=== PATIENT | male | born 1965 | race Caucasian/White ===

== ENCOUNTER 2019-05-26 08:23 | Emergency (ER) | payer BC, SELFPAY ==
[2019-05-26 08:30] VITALS: BP 135/72; PULSE 67; TEMP 36.7; O2SAT 100
--- NOTE | 2019-05-26 08:41 | W.ED.GENAD ---
Discharge Plan Disposition Patient Disposition: HOME Condition: Stable Discharge Details Chief Complaint: FlankPain Clinical Impression: Kidney stone on left side Primary Care Provider: Unknown,Unknown ED Provider: Jessica Rhoades Home Meds and New Rx's Prescriptions: New tamsulosin 0.4 mg capsule 0.4 mg PO DAILY Qty: 14 RF: 0 ibuprofen 800 mg tablet 800 mg PO Q8H PRN (Reason: pain) Qty: 14 RF: 0 ondansetron 4 mg tablet,disintegrating 4 mg PO Q6H PRN (Reason: nausea and vomiting) Qty: 14 RF: 0 Continued aspirin [Aspir-81] 81 MG tablet,delayed release (DR/EC) 1 tab PO DAILY RF: 0 garlic 1 EACH capsule 1 tab PO DAILY RF: 0 multivitamin 1 EACH capsule 1 tab PO DAILY RF: 0 Glucosamine Sulf-Chondroitin 1 EACH capsule 1 tab PO DAILY RF: 0 Discharge Instructions Instructions: Kidney Stones (ED) Additional Instructions: Strain all urine. Take medications as directed. Stop the tamsulosin if you start feeling dizzy lightheaded or weak. Follow-up with urology clinic in 2 to 3 weeks. Return to the ED or be seen sooner if any fever, chills, worsening vomiting worsening pain or any concerns. Follow up with primary care provider in 3-5 days. Return to ED sooner if any worsening or concerns. Increase oral fluids. Please take Tylenol or Ibuprofen with food every 4-6 hours as needed for pain and swelling. Stand Alone Forms: Work Release Referrals: Nicole Be NP [NURSE PRACTITIONER] - 2 weeks Medical Decision Making 53-year-old male presents with left flank pain which began this morning. Associated with nausea and vomiting. He denies fever chills diarrhea. He describes pain as waxing and waning right now he describes a 2 out of 10. Max is a 9 out of 10. Denies dysuria or trouble urinating. He has no significant past medical or surgical history, he is a non-smoker. 0844: Work-up ordered including CBC, CMP, UA CT abdomen pelvis without contrast to rule out kidney stone. EXAM: CT RENAL COLIC WO CLINICAL HISTORY: left flank pain TECHNIQUE: COMPARISON: UPPER ABD WITH CONTRAST (P) from 05/17/2010 FINDINGS: CT examination of the abdomen and pelvis was performed without contrast administration. Visualized portions of liver and spleen are unremarkable as is the pancreas. The adrenals are unremarkable in appearance bilaterally. Gallbladder and bile ducts are CT normal. No abdominal wall hernia. No significant abdominal or pelvic adenopathy. Normal diameter of abdominal aorta noted. Appendix is normal. No evidence of diverticulitis or bowel obstruction. Right kidney and ureter are unremarkable with no evidence of obstruction or calcification. There is moderate left hydronephrosis and hydroureter to the level of the distal ureter. There is an apparent obstructing 2 millimeter in diameter stone which appears to lie in the intramural portion of the left ureteral vesical junction. IMPRESSION: Left-sided urinary tract obstruction secondary to 2 millimeter in diameter UVJ stone. 0955: Urology paged. 1004: Spoke with Nicole Be NP with urology clinic she recommends 0.4 mg of tamsulosin giving the patient a strainer, and follow-up in their office in the next 2 to 3 weeks. Patient is much more comfortable after the Toradol and is sleeping in the room at this time. Patient discharged with home care instructions, verbalized understanding. This text was generated using [employer] system, please disregard any oddities of phrase or misspellings. HPI General Mode of arrival: ambulatory. Date/Time Provider Initiated Documentation: 05/26/19 08:30. Limitations to Documentation: no limitations. Information obtained by: patient. HPI Narrative: 53-year-old male presents with left flank pain which began this morning. Associated with nausea and vomiting. He denies fever chills diarrhea. He describes pain as waxing and waning right now he describes a 2 out of 10. Max is a 9 out of 10. Denies dysuria or trouble urinating. He has no significant past medical or surgical history, he is a non-smoker. Related Data Home Medications Medication Instructions Recorded Confirmed Glucosamine Sulf-Chondroitin 1 tab PO DAILY 11/24/14 05/26/19 aspirin [Aspir-81] 1 tab PO DAILY 11/24/14 05/26/19 garlic 1 tab PO DAILY 11/24/14 05/26/19 multivitamin 1 tab PO DAILY 11/24/14 05/26/19 ibuprofen 800 mg PO Q8H PRN #14 tab 05/26/19 ondansetron 4 mg PO Q6H PRN #14 tab 05/26/19 tamsulosin 0.4 mg PO DAILY #14 cap 05/26/19 Previous Rx's Medication Instructions Recorded ibuprofen 800 mg PO Q8H PRN #14 tab 05/26/19 ondansetron 4 mg PO Q6H PRN #14 tab 05/26/19 tamsulosin 0.4 mg PO DAILY #14 cap 05/26/19 Allergies Allergy/AdvReac Type Severity Reaction Status Date / Time No Known Allergies Allergy Unverified 05/26/19 08:39 General Stated Complaint: FlankPain DORI: 3 Review of Systems Narrative: Constitutional: Negative for weight loss, alert and oriented, well groomed, normal body habitus, appears comfortable. HEENT: Denies trauma, headaches, blurry vision, nasal discharge, sore throat, trouble swallowing. Chest: Denies chest pain, palpitations, irregular rhythm, hypertension. Respiratory: Denies Shortness of breath, cough, hemoptysis. GI: Denies abdominal pain, nausea, vomiting, diarrhea, constipation. : Denies dysuria, hematuria, rectal bleeding. Positive left-sided flank pain. Neuro: Denies dizziness, blurry vision, weakness, syncope, headache or facial numbness. Hematologic: Denies easy bruising, intolerance to heat or cold, hair loss. [facility] Social History Smoking/Tobacco Use Status: Never Drug use: Never Substance use type: does not use Do you feel safe at home: Yes Do you feel safe in your relationship?: Yes Exam Narrative Exam Narrative: Constitutional: Alert and oriented x3. Appears stated age. Normal body habitus. Head: Normocephalic, no trauma. Eyes: Pupils PERRLA, Red reflex noted, EOM's intact. Eyelids symmetrical without lesions, discharge, or swelling. ENT: Bilateral TM's WNL, External ear normal to inspection, no mastoid TTP, swelling, or erythema, Nasal turbinates WNL, no nasal discharge. Normal dentition, Posterior pharynx WNL, no exudate. Chest: RRR, Normal S1, S2, distal pulses intact. Resp: Lungs clear to auscultation bilaterally, no wheezes, rales, or rhonchi. Abdomen: Soft nontender to palpation. Normoactive bowel sounds all 4 quadrants. : Genital exam deferred, positive left-sided CVA tenderness. Musculoskeletal: Normal gait, 5/5 strength to all four extremities. Skin: No suspicious rashes or lesions. Capillary refill less than 2 sec. Neurologic: Cranial nerves II-XII intact. Alert and oriented x 3. DTR's intact. Hematologic/Lymphatic: No ecchymosis, no lymphadenopathy. Course Vital Signs Vital signs: Vital Signs Temperature 36.7 C 05/26/19 08:30 Pulse 67 05/26/19 08:30 Blood Pressure 135/72 05/26/19 08:30 Pulse Oximetry 100 05/26/19 08:30 Temperature 36.7 C 05/26/19 08:30 Temperature Source Temporal Artery Scan 05/26/19 08:30 Pulse 67 05/26/19 08:30 Respiratory Effort Non-Labored 05/26/19 08:35 Blood Pressure 135/72 05/26/19 08:30 Blood Pressure Position Sitting 05/26/19 08:30 Pulse Oximetry 100 05/26/19 08:30 Oxygen Delivery Method Room Air 05/26/19 08:30 Oxygen Flow Rate 0 05/26/19 08:30 Pain Level 9 05/26/19 08:36
[2019-05-26 08:44] LABS: Bilirubin Negative (Negative); Blood Negative (Negative); Clarity Clear (Clear); Glucose Negative (Negative); Ketones Trace mg/dL (Negative); Leukocyte Esterase Negative (Negative); Nitrite Negative (Negative); Specific Gravity >= 1.030 (1.005-1.025); Urobilinogen 0.2 EU/dL (Up TO 0.2)
[2019-05-26] MEDS: Ondansetron 4 MG/2 ML VIAL IVP (08:54)
[2019-05-26] MEDS: Ketorolac 30 MG/ML VIAL IVP (08:55)
[2019-05-26] MEDS: Normal Saline Flush 10 ML SYR IVP (08:55)
[2019-05-26] MEDS: Normal Saline 1,000 ML 1000 ML IV (08:56)
[2019-05-26 09:16] VITALS: BP 113/77; PULSE 64; O2SAT 95
[2019-05-26 09:16] LABS: Absolute Basophil Count 0.03 k/cumm (0.0-0.2); Absolute Eosinophil Count 0.02 k/cumm (0.0-0.7); Absolute Lymphocyte Count 0.83 k/cumm (1.2-3.4); Absolute Neutrophil Count 4.32 k/cumm (1.2-6.7); Basophils % 0.5; Eosinophils % 0.4; HCT 46.1 % (40.0-50.0); HGB 15.4 g/dL (13.5-17.5); Lymphocytes % 14.8; Mean Corp. HGB Concentration 33.4 g/dL (32.0-36.0); Mean Corpuscular Hemoglobin 30.5 pg (27.0-33.0); Mean Corpuscular Volume 91.3 fL (80-95); Mean Platelet Volume 10.6 fL (8.0-11.0); Monocytes % 7.1; Neutrophils % 77.2; Platelet Count 219 x1000/uL (130-400); RBC 5.05 m/cumm (4.50-6.00); RBC Distribution Width 13.8 % (11.8-14.1)
--- NOTE | 2019-05-26 09:30 | DI.CT_ITS ---
EXAM: CT RENAL COLIC WO CLINICAL HISTORY: left flank pain TECHNIQUE: COMPARISON: UPPER ABD WITH CONTRAST (P) from 05/17/2010 FINDINGS: CT examination of the abdomen and pelvis was performed without contrast administration. Visualized po rtions of liver and spleen are unremarkable as is the pancreas. The adrenals are unremarkable in appe arance bilaterally. Gallbladder and bile ducts are CT normal. No abdominal wall hernia. No significan t abdominal or pelvic adenopathy. Normal diameter of abdominal aorta noted. Appendix is normal. No evidence of diverticulitis or bowel obstruction. Right kidney and ureter are unremarkable with no evidence of obstruction or calcification. There is moderate left hydronephrosis and hydroureter to the level of the distal ureter. There is an apparent obstructing 2 millimeter in diameter stone which appears to lie in the intramural portion of the left ureteral vesical junction. IMPRESSION: Left-sided urinary tract obstruction secondary to 2 millimeter in diameter UVJ stone.
[2019-05-26 09:31] LABS: ALT 31 U/L (16-63); AST 22 U/L (15-37); Alkaline Phosphatase 63 U/L (46-116); Anion Gap 9.3 mmol/L (3-11); BUN 18 mg/dL (7-18); Bilirubin, Total 0.7 mg/dL (0.2-1.0); CO2 26.7 mmol/L (21.0-32.0); CREATININE 1.11 mg/dL (0.70-1.30); Calcium 9.2 mg/dL (8.5-10.1); Chloride 104 mmol/L (98-107); Glucose 120 mg/dL (74-106); Potassium 3.8 mmol/L (3.5-5.1); Sodium 140 mmol/L (136-145); Total Protein 7.1 g/dL (6.4-8.2)
[2019-05-26] MEDS: Tamsulosin 0.4 MG CAPCR PO (10:10)
[2019-05-26 10:15] VITALS: BP 131/83; PULSE 66; TEMP 37.1; O2SAT 96
== END 2019-05-26 10:26 | disposition home or self-care (01) ==
PROVIDERS: Emergency Provider Registered Nurse Emergency
DX: N20.1 Calculus of ureter (principal)
CPT/HCPCS: 80053; 96361; 96374; 96375; 99284; 74176; 81003; 85025; J1885; J2405

== ENCOUNTER 2019-05-27 13:33 | Outpatient (REF) | payer BC, SELFPAY ==
[2019-06-02 20:53] LABS: Source: Passed Stone
== END 2019-05-27 13:53 ==
LOC: LBN ADD 13:33
PROVIDERS: PCP Nurse Practitioner Gerontology; Visit Provider Nurse Practitioner Gerontology
DX: N20.0 Calculus of kidney (principal)
CPT/HCPCS: 82365

== ENCOUNTER 2019-07-03 02:47 | Outpatient (CLI) | payer BC, SELFPAY ==
--- NOTE | 2019-07-03 09:15 | DI.US_ITS ---
EXAM: US RENAL CLINICAL HISTORY: monitoring/check hydro - cont'd left flank pain,N20.0,LT KIDNEY STONE. TECHNIQUE: Rodriguez scale, color and spectral Doppler were used. COMPARISON: CT CT RENAL COLIC WO from 05/26/2019 FINDINGS: Renal size in cm: Right: 10.0 left: 11.0 Echogenicity: Normal Hydronephrosis: No Cyst or mass: No Nephrolithiasis: No Other findings: No perinephric collection Bladder:Normal both ureteral jets were visualized. Prevoid vol: 289 cc Postvoid vol: 149 cc Prostate volume 14 cc. IMPRESSION: No evidence of hydronephrosis. Elevated postvoid residual volume. DATA REPOSITORY:
== END 2019-07-03 03:07 ==
PROVIDERS: Visit Provider Nurse Practitioner Gerontology
DX: N20.0 Calculus of kidney (principal); R39.198 Other difficulties with micturition
CPT/HCPCS: 76770

== ENCOUNTER 2019-08-28 09:48 | Outpatient (CLI) | payer BC, SELFPAY ==
--- NOTE | 2019-08-28 09:30 | DI.RAD_ITS ---
EXAM: XR HIP RT COMPLETE AP PELVIS CLINICAL HISTORY: eval R hip OA. TECHNIQUE: 2D digital imaging was performed. COMPARISON: No exams were available for comparison FINDINGS: There are marked degenerative changes of the right hip characterized by joint space narrowing, subcho ndral sclerosis and cysts. In the left hip there is mild joint space narrowing and subchondral scler osis. No acute fracture or dislocation. IMPRESSION: Marked degenerative changes of the right hip DATA REPOSITORY: RADIATION DOSE DELIVERED:
== END 2019-08-28 10:08 ==
PROVIDERS: Referring Provider Student in an Organized Health Care Education/Training Program; Visit Provider Student in an Organized Health Care Education/Training Program
DX: M16.11 Unilateral primary osteoarthritis, right hip (principal)
CPT/HCPCS: 73502

== ENCOUNTER 2019-09-19 04:36 | Outpatient (CLI) | payer BC, SELFPAY ==
[2019-09-19 09:56] LABS: HCT 46.8 % (40.0-50.0); HGB 15.3 g/dL (13.5-17.5); MCH 30.1 pg (27.0-33.0); MCHC 32.7 % (32.0-36.0); MCV 92.1 fL (80-95); Platelet Count 217 10^3/uL (130-400); RBC 5.08 10^6/uL (4.36-5.78); RDW-SD 43.8 fL; WBC 4.17 10^3/uL (4.4-10.8)
[2019-09-19 10:48] LABS: Anion Gap 11.1 mmol/L (3-11); BUN 15 mg/dL (7-18); CO2 24.9 mmol/L (21.0-32.0); CREATININE 0.82 mg/dL (0.70-1.30); Calcium 8.9 mg/dL (8.5-10.1); Chloride 105 mmol/L (98-107); Glucose 96 mg/dL (74-106); Potassium 4.4 mmol/L (3.5-5.1); Sodium 141 mmol/L (136-145)
== END 2019-09-19 04:56 ==
PROVIDERS: Visit Provider Student in an Organized Health Care Education/Training Program
DX: M16.11 Unilateral primary osteoarthritis, right hip (principal)
CPT/HCPCS: 36415; 80048; 85027; 86850; 86900; 86901

== ENCOUNTER 2019-09-20 07:26 | Outpatient (CLI) | payer BC, SELFPAY ==
[2019-09-21 23:38] LABS: COVID-19 RT-PCR Result NEGATIVE (Negative)
== END 2019-09-20 07:46 ==
PROVIDERS: Visit Provider Student in an Organized Health Care Education/Training Program
DX: Z11.59 Encounter for screening for other viral diseases (principal); Z01.818 Encounter for other preprocedural examination
CPT/HCPCS: U0003

== ENCOUNTER 2019-09-24 08:24 | Observation (INO) | payer BC, SELFPAY ==
[2019-09-24] VITALS (12 sets, daily range): BP systolic 79–114; BP diastolic 40–78; PULSE 61–76; RESP 14–20; TEMP 35.8–36.6; O2SAT 94–99
[2019-09-24] MEDS: Celecoxib 200 MG CAP 400 MG PO (08:53)
[2019-09-24] MEDS: Acetaminophen 500 MG TAB 1000 MG PO ×2 (08:54→13:44)
[2019-09-24] MEDS: Lactated Ringers 1,000 ML 80 ML IV ×2 (09:17→10:50)
--- NOTE | 2019-09-24 09:34 | DSE_ITS ---
Date of service: 09/24/19 Time of Service: 15:58 DS: Diagnosis Discharge Diagnosis (1) Osteoarthritis of right hip: Status: Acute Discharge Plan Disposition Patient Disposition: HOME Condition: Good Discharge Details Reason For Visit: R SAMIR Admit Date/Time: 09/24/19 08:24 Admit Provider: Carter Lizama Attending Provider: Carter Lizama Primary Care Provider: Arielle,[facility] Hospital Course Hospital Course: Patient was admitted to the medical/surgical floor following the procedure. The surgery was tolerated well without any notable medical, surgical, or anesthetic complications. Mobilization began postoperatively. Milind was voiding spontaneously. Vitals were stable. Physical therapy worked with the patient and was cleared for discharge home. No acute medical issues. Pain was controlled on oral regimen. Home Meds and New Rx's Prescriptions: New oxycodone 5 mg tablet 5 mg PO Q4H PRNQty: 12 RF: 0 ibuprofen 600 mg tablet 600 mg PO TID Qty: 90 RF: 0 aspirin 81 mg tablet,delayed release (DR/EC) 81 mg PO BID Qty: 60 RF: 0 acetaminophen [Tylenol Extra Strength] 500 mg tablet 500 mg PO Q6H PRNQty: 90 RF: 0 pantoprazole 40 mg tablet,delayed release (DR/EC) 40 mg PO DAILY Qty: 30 RF: 0 docusate sodium [Colace] 100 mg capsule 100 mg PO BID PRNQty: 10 RF: 0 Continued omega-3 fatty acids [Fish Oil Concentrate] 1,000 mg capsule 1,000 mg PO DAILY RF: 0 garlic 1 EACH capsule 1 tab PO DAILY RF: 0 multivitamin 1 EACH capsule 1 tab PO DAILY RF: 0 Glucosamine Sulf-Chondroitin 1 EACH capsule 1 tab PO DAILY RF: 0 Discontinued aspirin [Aspir-81] 81 MG tablet,delayed release (DR/EC) 1 tab PO DAILY RF: 0 ibuprofen 800 mg tablet 800 mg PO Q8H PRN (Reason: pain) Qty: 14 RF: 0 Discharge Instructions Additional Instructions: Total Hip Discharge Instructions Activity: The most important activity is to walk. You should try to take short walks a few times a day. You have no restrictions on movement or positioning, but do not try to force what you do. You will find some stiffness and weakness with hip flexion (lifting your knee). Do not try to strengthen this too early, continue to practice walking and stairs and this will come. - Outpatient physical therapy can be helpful to help return you to a normal gait and improve your flexibility and strength. This can start around 2 weeks. For some patients, it?s not necessary. Usually this is determined at the time of discharge or at the first post-operative visit. - You should wear the MEKA hose on both legs for 2 weeks. Dressing: Keep the surgical dressing in place for at least one week. After the first week it may be removed and replace with light gauze and tape or nothing. It may get wet after 3 days but avoid soaking the dressing. If it gets wet, just lightly pat dry. It is important to always keep some gauze between skin folds, especially when you are sitting. Spend some time with the wound exposed when you are lying flat as the incision does wrinkle onto itself. Medications: - You should take Tylenol and an anti-inflammatory Celebrex as your primary pain control medications - You have been prescribed a stronger pain medication Oxycodone for breakthrough pain, take as needed as prescribed. - You have also been prescribed a stomach acid reduction agent Pantoprozole to help reduce stomach acid and reflux. - You will be taking Aspirin 81mg twice a day for DVT prevention unless instructed otherwise. - If you have constipation you should take Colace or Miralax (both [id number]) but Colace has been called in. It takes most people 3-4 days to have a bowel movement. Follow-up: 2 weeks Referrals: Carter Lizama MD [ [facility] STAFF PHYSICIAN] - Activity:: Activity as Tolerated Equipment/Supplies:: Walker Diet:: As Tolerated Discharge Orders Discharge Orders: Discharge Order (Routine); Ordered 09/24/19 Ordered By: Carter Lizama DS: Summary Status at Discharge Functional status at discharge: uses cane/walker Overall status at discharge: patient is progressing back to baseline Mental Status: mental status grossly normal Speech and Movement: speech and movement normal Mood: congruent mood Affect: normal affect Exam Psych Mental Status: mental status grossly normal Speech and Movement: speech and movement normal Mood: congruent mood Affect: normal affect [facility] Surgical History Hernia (Chronic) History of tonsillectomy (Chronic) Hx of colonoscopy (Chronic) Hx of wisdom tooth extraction (Acute) Social History Smoking/Tobacco Use Status: Former Tobacco Use Drug use: Never Substance use type: does not use Current gender identity: male Do you feel safe at home: Yes Do you feel safe in your relationship?: Yes
[2019-09-24] MEDS: ceFAZolin 2 GM/50 ML BAG IVPB (10:10)
[2019-09-24] MEDS: Bupivacaine 0.25% Pres-Free 30 ML VIAL (10:45)
[2019-09-24] MEDS: Ketorolac 30 MG/ML VIAL (10:46)
--- NOTE | 2019-09-24 11:25 | DI.RAD_ITS ---
EXAM: XR HIP RT IN OR CLINICAL HISTORY: Osteoarthritis of right hip. TECHNIQUE: 2D and realtime digital imaging was performed. COMPARISON: No exams were available for comparison FINDINGS: Fluoroscopy was provided in the OR. Hard copy images show placement of a right hip prosthesis. The alignment appears satisfactory. Please see procedure note for details. Fluoro time: 51.7 sec RADIATION DOSE DELIVERED:
[2019-09-24] MEDS: ePHEDrine 50 MG/ML VIAL 25 MG IM (12:10)
[2019-09-24] MEDS: ePHEDrine 50 MG/ML VIAL 10 MG IVP (12:10)
[2019-09-24] MEDS: HYDROmorphone 2 MG/ML VIAL IVP (12:15)
--- NOTE | 2019-09-24 14:35 | PT.INIE ---
Date of service: 09/24/19 Time of Service: 14:35 PT Notes Visit Reasons: R SAMIR Physical Therapy Inpatient Initial Evaluation Date: 09/24/2019 Referring Doctor: Carter Lizama MD PT Orders: PT CONSULT: Status post Ortho surgery Precautions: Fall. Standard. WBAT on right LE. Patient Profile/Admitting Diagnosis: Easton is a for 3-year-old male with primary unilateral osteoarthritis of the right hip and is status post right total arthroplasty on postoperative day 0. PMHX: Surgical History Hernia (Chronic) History of tonsillectomy (Chronic) Social History/Home Situation: Easton lives with his in a private home with 3 steps to enter without rails. He is independent with all aspects of ADLs without the need for an assistive ambulatory device nor adaptive equipment. 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 Equipment Owned/DME: Front wheeled walker Subjective: Patient reports 3/10 pain in the left hip area which felt significantly better with ambulation. However patient reported cold and clammy right after ambulation and stair activity. He still hopes to go home today when medically cleared. He hopes to go back to work after that 6 weeks of leave that he was approved for. Objective: General Observation: Bilateral TEDs on. Mepilex Ag over surgical incision. IV in right UE. Mental Status: Alert and oriented x4 Pain: 3/10 in the right hip Vital Signs: Hypotensive episode at 91/59 mmHg after mobility assessment ROM: Right Upper Extremity: Shoulder Flexion WFL. Shoulder abduction WFL. Elbow flexion WFL. Wrist flexion WFL. Opening and closing of hand WFL. Left Upper Extremity: Shoulder Flexion WFL. Shoulder abduction WFL. Elbow flexion WFL. Wrist flexion WFL. Opening and closing of hand WFL. Right Lower Extremity: Hip flexion WFL. Hip abduction WFL. Knee flexion WFL. Ankle dorsiflexion WFL. Ankle plantarflexion WFL. Left Lower Extremity: Hip flexion WFL. Hip abduction WFL. Knee flexion WFL. Ankle dorsiflexion WFL. Ankle plantarflexion WFL. Strength: Right Upper Extremity: Shoulder flexors 5/5. Shoulder abductors 5/5. Elbow flexors 5/5. Elbow extensors 5/5. Mental Health Aide strong. Left Upper Extremity: Shoulder flexors 5/5. Shoulder abductors 5/5. Elbow flexors 5/5. Elbow extensors 5/5. Mental Health Aide strong. Right Lower Extremity: Hip flexors 5/5. Hip abductors 5/5. Knee flexors 5/5. Knee extensors 5/5. Ankle dorsiflexors 5/5. Ankle plantarflexors 5/5. Left Lower Extremity:Hip flexors 5/5. Hip abductors 5/5. Knee flexors 5/5. Knee extensors 5/5. Ankle dorsiflexors 5/5. Ankle plantarflexors 5/5. Sensation: Intact as to pain and pressure on bilateral lower extremities. Bed Mobility/Transfers: Supine to sit standby assist Sit to supine standby assist Sit to stand standby assist using front wheeled walker Stand to sit standby assist using front wheeled walker Bed to chair standby assist using front wheeled walker Chair to bed standby assist using front wheeled walker THERA EX: Easton tolerated standing level exercises consisting of bilateral heel raises x10, partial knee bends x10, and marching in place to stand on hold onto wheeled walker without undue difficulty. Gait: 250 feet using a walker with step through heel-toe gait pattern requiring standby assist. Tolerated up-and-down six 4 inch steps and four 6 inch steps with one hand holding onto a rail and the other hand using a single-point cane with SBA using step to gait pattern, minimal verbal cues given correct technique. Patient reported being cold and clammy afterwards with blood pressure going down to 91/59 mmHg. Patient was wheeled up to room and was helped back in bed to rest. Balance: Static Sitting: Normal Dynamic Sitting: Normal Static Standing: Fair Dynamic Standing: Fair Special Tests: Mobility Limitations Standardized Measure [facility] AM-PAC 6 clicks Basic Mobility Inpatient Short Form: Raw Score: 24 CMS Score: 0% deficit Informed Consent/Education: Patient instructed in purpose of PT consult and plan of care. Assessment: Easton demonstrates functional mobility decline requiring the use of a walker to maximize independence with transfer and ambulation tasks and decreased activity tolerance with walking due to postoperative status. is a 53-year-old male with primary unilateral osteoarthritis of the right hip and is status post right total hip arthroplasty on postoperative day 0. Patient presents with clinical signs and symptoms consistent with current/admitting diagnoses that have resulted to mobility limitations, gait instability, generalized weakness, and impairment of motor control as demonstrated by the following impairment level findings: 1. Decreased strength to right hip major muscle groups 2. Impaired sitting/standing balance 3. Impaired activity tolerance Impairments are contributing to the following functional limitations: 1. Inability to safely ambulate without assistive device and physical assistance 2. Increase completion time for mobility ADL performance 3. Increased fall risk 4. Inability to negotiate steps alone safely Patient is assessed [place] a 90660 moderate complexity based on the following: History: 53-year-old male with impairment level findings, functional limitations, and past medical history as indicated above Examination: Demonstrable impairment in strength, balance, and mobility level with underlying impairments and functional limitations as documented above Presentation:Evolving Decision Makin moderate complexity Goals: Goals X 1 session 1. Supine-Sit independent 2. Sit-Supine independent 3. Sit-Stand independent 4. Stand-Sit independent 5. Bed-Chair independent 6. Chair-Bed independent 7. Independent gait on level surface with use of least restrictive device for at least 300 feet without report of pain nor dyspnea 8. Independent stair negotiation while holding onto bilateral rails for at least 10 steps without report of pain nor dyspnea 9. Independent with home exercise program 10. Good static and dynamic standing balance/tolerance Plan of Care/Treatment Plan: N/A. Patient is evaluation 1 treatment session only. DISCHARGE RECOMMENDATIONS: Home when medically cleared by orthopedic surgeon. May benefit from outpatient physical therapy services to facilitate return to independent premorbid level and vocational activities. TREATMENT CODE/TIME: 9716 2 x 25 minutes, 16646 x 20 minutes beginning at 14:35 PM. Thank you for the opportunity to participate in the care of this patient. Mckayla Ariza PT, DPT, CLT [facility] [place], [place]
--- NOTE | 2019-09-24 14:43 | ROE_ITS ---
Date of service: 09/24/19 Time of Service: 11:40 Operative Note Operative Note DATE OF PROCEDURE: 09/24/19 PRE-OP DIAGNOSIS: Right Hip Osteoarthritis POST-OP DIAGNOSIS: same PROCEDURE: Right anterior Total Hip Arthroplasty SURGEON: Carter Lizama [employer] UNDERWRITER: Tabatha Antony ANESTHESIA: spinal ESTIMATED BLOOD LOSS: 400 PATHOLOGY: none sent COMPLICATIONS: None Patient was transported to: PACU Patient's condition: stable Implants: 1. Depuy [place] Acetabular Component, 56mm 2. Depuy Acetabular Liner, [id number] 3. Depuy Corail High Offset Femoral Stem, Size 13 4. Depuy Altrx Ceramic Femoral Head, Size 36+1.5mm Indications: I have seen Milind in clinic for symptoms of hip arthritis, confir med with radiographic findings. He has exhausted nonoperative methods and was having significant limitations in daily function and desired better function and less pain. I discussed the technical details of a hip replacement. I explained the risks of the procedure to include, but not limited to, bleeding, infection, pain, stiffness, fracture, damage to nerves and vessels, damage to muscles and tendons, loosening, instability, leg length inequality, need for repeat procedure, blood clot and cardiopulmonary demise. Despite these risks, Milind elected to proceed. Findings: There was significant signs of arthritis throughout the hip. There were large lateral neck osteophytes and acetabular rim osteophytes with calcified labrum. Procedure Description: Milind was greeted in the preoperative holding area where the correct side was identified and marked. The consent was reviewed with the patient and signed. The history and physical was updated. All questions were answered. He was taken back to the operating room. A spinal anesthestic was then administered. The patient was placed into the supine position on the operating room table. The patient was then positioned onto the ARCH table. Both feet were wrapped with [place] cotton wrap along with Coban. The feet were placed in specialized boots for the ARCH table, well seated within the boot and secured. SCDs were applied. The patient was then slid down onto a peroneal post and the nonoperative leg was secured in a leg knight attached to the table. The operative side was placed into the ARCH table attachment and bed height and positioning was secured. A preoperative AP pelvis was obtained to serve as a reference for determining leg lengths. Prophylactic antibiotics in the form of cefazolin were administered. 1g of Tranxemic Acid was given intravenously within 30 minutes of incision. The right leg was then prepped with Chloraprep and draped in a standard fashion. A second prep with Chloraprep was performed prior to placement of a shower-curtain type drape with Iodine impregnated skin protection. A timeout to confirm correct identity, side and site, procedure, allergies, anesthesia, and medical concerns was performed. An obliquely oriented incision was made starting lateral to the ASIS and running distal over the Tensor Fascia Nia (TFL) muscle belly toward the fibular head, approximately 10cm. The skin and soft tissue was dissected sharply, through Sophia?s fascia, and to the fascia of the TFL. With the fascia and superior border of the IT band identified, the fascia was incised with a new knife just above any perforators from the IT band. The TFL muscle belly was bluntly dissected away from the fascia and moved laterally. The fat between TFL and rectus was identified to ensure the dissection was not within the TFL. Blunt dissection created space between abductors and the capsule and retractor was placed over the lateral femoral neck. The fibers of the rectus femoris tendon were identified and these were freed from the anterior capsule. A second cobra retractor was placed around the medial femoral neck. The TFL was further retracted laterally to show the deep fascia. Careful dissection through this layer identified three main crossing vessels of the lateral femoral circumflex. These were cauterized in multiple locations and then cut without any noticeable bleeding. The TFL was further released bluntly from the deep fascia to expose anterior hip capsule and fat the Joselito orthopaedic retractor was then placed beneath the TFL and against sartorius and medial soft tissues to protect and retract the soft tissues. A T-capsulotomy was then performed starting at the superior lateral acetabulum and moving distally to the intertrochanteric ridge. These capsular flaps were tagged with a No. 1 Ethibond and elevated from within. The capsular flaps were released to the shoulder of the lateral neck and to the lesser trochanter to give excellent visualization of the proximal femur. A neck osteotomy was performed using an oscillating saw based on preoperative te mplates. This cut started in the shoulder and of the lateral neck and exited medially. The saw was at all times directed medially to avoid injury to the greater trochanter. 6cm of traction was applied to the leg and the osteotomy opened. The femoral head was removed with a corkscrew, making sure to protect the TFL on its exit. This was measured on the back table to determing the starting reamer size. Portions of the rectus obscuring visualization were minimally elevated off the superior acetabulum. An anterior retractor was placed over the anterior wall between capsule and labrum and attached to the Gripper retraction system. A posterior retractor was placed similarly. This provided excellent visualization. The contents of the cotyloid fossa were removed with electrocautery and the labrum was removed with a knife. There was a notable floor osteophyte. There was significant chondromalacia of the superior acetabulum. Acetabular reaming began with a 50mm reamer. This first reaming was directed anterior to posterior and medial to get down to the true floor. This was inspected and reamed until the true floor was reached. The anterior retractor was then released and entry and exit was provided by traction on the capsular flaps. I then reamed sequentially up to a 56mm reamer where good fit was obtained. The larger reamers were oriented based on anatomical reference of the anterior and lateral burns to ensure proper abduction and anteversion. Positioning and size was confirmed with the fluoroscopy. A 56mm Depuy [place] acetabular component was selected. The acetabulum was reamed around the periphery with the selected acetabular size to prevent a rim fit. The deep tissues were irrigated. The acetabular component was then impacted in a position of about 40-45 degrees of abduction and 15-20 degrees of anteversion, using the patient?s anatomy as the ultimate landmark. Fluoroscopy was used to confirm this. There was excellent director of recruitment and admissions of the acetabular component and the inserting handle was removed. The acetabular liner, Depuy [id number] polyethylene liner, was inserted and lined up with the tines of the acetabular component. There was no soft tissue interposition. The liner was then impacted into position and confirmed to be well-seated. A portion of the caro-articular cocktail was then injected around the acetabulum into the capsule and periosteum. This cocktail consisted of 50cc of 0.25% Bupivicaine and 20cc of Exparel, expanded to a total of 120cc. Traction was released from the femur. The leg was rotated to 120 degrees. Any remaining medial capsule was released until the lesser trochanter was easily palpable. A Brizuela retractor was placed medially. The lateral capsule was further released into the shoulder to allow access to the greater trochanter. A Brizuela retractor was placed over the greater trochanter which allowed the trochanter to flip in front of the capsule for excellent exposure. The leg was brought down into maximal extension and 20 degrees of adduction while ensuring there was no impingement on the acetabulum. Any remnant capsule within the trochanter was released. Piriformis and obturator externis were identified and protected. There was excellent access to the proximal femur. The lateral neck remnant was removed with a rongeur. A blunt canal probe was used to identify the canal and trajectory for later broaching. A box osteotome initiated the broach course. A small curved rasp and a curved curette were used to work laterally. Broaching then began with a size 8 Corail broach. This was inserted manually around the trochanter and into the canal before mallet blows. The broach was seated to a few millimeters below the cut level based on the neck cut and the preoperative template. Sequential broaching was continued with the [employer] pneumatic broaching device until a tight fit was obtained with good rotational control of the femur. A trial standard neck was inserted along with a +5 trial head. The leg was brought out of extension and adduction and then reduced with traction and internal rotation. The leg was stable anteriorly in a position of 30 degrees of extension and 90 degrees of external rotation. Fluoroscopy was used to ensure there was no fracture and the stem was seated well. Leg lengths were checked with an AP pelvis and pelvic reference points. [employer] navigation system was used to confirm appropriate positioning and leg length and offset. This arrangement added a millimeter or 2 more of leg length than desired but did not actually re-create the offset. Therefore, using the joint point system a high offset +1.5 was selected. Once content with the desired offset and leg lengths, the leg was brought back into extension, external rotation and adduction. The periosteum and surrounding tissue was injected with remaining portion of the caro-articular cocktail. The proximal femur was irrigated as well as the deep tissues. The Depuy Cor[place] high offset stem, size 13, was then manually inserted into the proximal femur making sure to control rotation. It was then malleted into position with light blows, giving breaks to allow bone expansion and decrease risk of fracture. The selected Depuy Altrx Ceramic Head, size 36+1.5 mm, was then placed onto the clean and dry trunnion and secured with impaction onto the tapered fit. The leg was brought back out of extension and adduction and reduced with traction and internal rotation. Stability was confirmed with no shuck at 90 degrees of external rotation and 30 degrees of extension. No impingement through range of motion arc. Final x-ray images were obtained with fluoroscopy to confirm adequate positioning and no intraoperative fracture. The deep tissues were thoroughly irrigated with Irrisept chlorhexadine solution. The second dose of TXA 1g was administered intravenously. The capsule was then reapproximated with the previously placed Ethibond sutures. The TFL fascia was finally closed with a No. 2 Stratafix, barbed suture. Deep tissues were then reapproximated with 0 Vicryl and a running 2-0 Vicryl. The skin was closed with a running 4-0 Monocryl in a subcuticular fashion. This was reinforced with skin glue. A Mepilex silver dressing was applied. At the end of the case, all counts were correct. Milind was transferred to the hospital bed without difficulty and suffering no apparent complication. Milind has a good prognosis. Physical therapy will start today and without restrictions, weight-bearing as tolerated. Aspirin 81mg BID will be used for DVT prophylaxis.
== END 2019-09-24 18:00 | disposition home or self-care (01) ==
LOC: PDS 12:24 → MS 12:25
PROVIDERS: Admitting Provider Student in an Organized Health Care Education/Training Program; Visit Provider Student in an Organized Health Care Education/Training Program
PROC: 0SR904A Replacement of Right Hip Joint with Ceramic on Polyethylene Synthetic Substitute, Uncemented, Open Approach (ICD-10-PCS; CPT 27130; principal; 2019-09-24 10:00)
DX: M16.11 Unilateral primary osteoarthritis, right hip (principal); M25.551 Pain in right hip; Z96.641 Presence of right artificial hip joint
CPT/HCPCS: 27130; 20985; C1776; 97162; 97530; NC; 73501; G0378; J0690; J1100; J1885; J2250; J2405

== ENCOUNTER 2019-10-09 09:39 | Outpatient (CLI) | payer BC, SELFPAY ==
--- NOTE | 2019-10-09 09:30 | DI.RAD_ITS ---
EXAM: XR HIP RT COMPLETE AP PELVIS INDICATION: eval R SAMIR. COMPARISON: CR XR HIP RT COMPLETE AP PELVIS from 08/28/2019 XR HIP RT IN OR from 09/24/2019 TECHNIQUE: 2D digital imaging was performed. FINDINGS: There are stable postsurgical changes of a right total hip arthroplasty. No evidence of hardware rosa lure is seen. Stable mild to moderate degenerative changes are seen in the left hip. The bones are intact. The soft tissues are unremarkable. IMPRESSION: Stable right THR. DATA REPOSITORY: RADIATION DOSE DELIVERED:
== END 2019-10-09 09:59 ==
PROVIDERS: Referring Provider Student in an Organized Health Care Education/Training Program; Visit Provider Student in an Organized Health Care Education/Training Program
DX: Z96.641 Presence of right artificial hip joint (principal); M16.12 Unilateral primary osteoarthritis, left hip
CPT/HCPCS: 73502

== ENCOUNTER 2020-09-20 09:49 | Outpatient (CLI) | payer BC, SELFPAY ==
--- NOTE | 2020-09-20 08:00 | DI.RAD_ITS ---
Exam(s) XR HIP RT AP LAT ONLY EXAM: XR HIP RT AP LAT ONLY CLINICAL HISTORY: annual f/u R SAMIR. TECHNIQUE: 2D digital imaging was performed. COMPARISON: CR XR HIP RT COMPLETE AP PELVIS from 10/09/2019 FINDINGS: There is continued stable appearance of the components of the right hip prosthesis. No fracture or l oosening evident. No radiographic evidence of osteomyelitis. IMPRESSION: DATA REPOSITORY: RADIATION DOSE DELIVERED:
== END 2020-09-20 09:50 | disposition home or self-care (01) ==
LOC: DIORS 09:50
PROVIDERS: Visit Provider Student in an Organized Health Care Education/Training Program
DX: Z96.641 Presence of right artificial hip joint (principal)
CPT/HCPCS: 73502

== ENCOUNTER 2023-07-12 16:00 | Outpatient (CLI) | payer BC, SELFPAY ==
--- NOTE | 2023-07-12 15:37 | DI.RAD_ITS ---
Exam(s) XR HIP LT COMPLETE AP PELVIS EXAM: XR HIP LT COMPLETE AP PELVIS CLINICAL HISTORY: LEFT HIP PAIN. TECHNIQUE: 2D digital imaging was performed. COMPARISON: CR XR HIP RT COMPLETE AP PELVIS from 10/09/2019 CR XR HIP RT AP LAT ONLY from 09/20/2020 FINDINGS: 3 views No evidence of fractures. Right hip prosthesis appears stable. Again noted is moderate narrowing of the superior joint space of the opposite-left hip although this does appear to exhibit minimal if any significant change when compared to October 2002 images. Bon e density normal. No osseous lesions. IMPRESSION: Moderate degenerative changes in the left hip joint which appears stable compared to images of 2019. Stable appearance of right hip prosthesis. DATA REPOSITORY: RADIATION DOSE DELIVERED:
== END 2023-07-12 16:01 | disposition home or self-care (01) ==
LOC: DIORS 16:01
PROVIDERS: Visit Provider Student in an Organized Health Care Education/Training Program
DX: M25.552 Pain in left hip (principal)
CPT/HCPCS: 73502